=== PATIENT | female | born 1950 | race Caucasian/White ===

== ENCOUNTER 2018-02-08 18:58 | Emergency (ER) | payer OTHER ==
--- OUTSIDE RECORDS SUMMARY | 2018-02-08 19:00 | XMS REPORT | Clinical Summary ---
:1950 Author Organization [facility] Address [address] [place] [address] Care Team Providers Name Role Phone Marcio Ocoha MD Primary Care Provider Allergies Active Allergy Reactions Severity Noted Date Comments Adhesive Tape-Silicones Rash Low 10/31/2017 Codeine GI Intolerance 10/31/2017 Hydrocodone GI Intolerance 02/08/2018 Severe vomiting Nickel Rash Low 10/31/2017 Current Medications Prescription Sig. Disp. Refills Start Date End Date Status acetaminophen Take 500 mg by Active (TYLENOL) 500 MG mouth every 6 tablet (six) hours as needed for mild pain. famotidine (PEPCID Take 1 tablet Active AC ORAL) by mouth as needed. traMADol (ULTRAM) Take 1 tablet 60 tablet 0 02/08/2018 02/22/2018 Active 50 mg tablet (50 mg total) by mouth every 6 (six) hours as needed for moderate pain for up to 60 doses. esomeprazole Take 20 mg by 11/13/2017 Discontinued (NexIUM) 20 MG mouth daily capsule before breakfast. traMADol (ULTRAM) 1-2 tabs PO 60 tablet 3 10/31/2017 11/13/2017 Discontinued 50 mg tablet q4-6 prn pain Active Problems No known active problems Encounters Date Type Specialty Care Team Description 02/08/2018 Hospital Encounter Orthopedic Surgery Jai Wade Lumbar stenosis with neurogenic claudication; MD Collin Acute sciatica; Lumbosacral spinal stenosis 02/08/2018 Anesthesia Event Orthopedic Surgery Damion Muse MD 02/08/2018 Procedure Pass Orthopedic Surgery 02/08/2018 Surgery Orthopedic Surgery Jai Wade DECOMPRESSION AND MD Collin FUSION L4-5 02/06/2018 Orders Only Orthopedic Surgery Marleen Perez MA 01/24/2018 Pre-Admit Testing Pre-Admission Jai Wade Preop examination Appointment Testing MD Collin (Primary Dx) 01/24/2018 Office Visit Orthopedic Surgery Jai Wade Spinal stenosis alexsander Polanco MD lumbar region with neurogenic claudication (Primary Dx) 01/24/2018 Anesthesia Event Pre-Admission 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., 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 01/03/2018 Hospital Encounter Jai Wade MD lumbar region with neurogenic claudication 01/03/2018 Ancillary Orders Orthopedic Surgery Jai Wade Spinal Sandra MD lumbar region with neurogenic claudication 01/03/2018 Ancillary Orders Orthopedic Surgery Jai Wade MD 01/03/2018 Ancillary Orders Orthopedic Surgery Jai Wade Spinal stenosis alexsander Polanco MD lumbar region with neurogenic claudication 12/18/2017 Office Visit Orthopedic Surgery Jai Wade Spinal Sandra MD lumbar region with neurogenic claudication (Primary Dx) 11/13/2017 Office Visit Orthopedic Surgery Jai Wade Bilateral sciatica MD Collin (Primary Dx) 10/31/2017 Office Visit Orthopedic Surgery Wesley Key Primary osteoarthritis of right knee (Primary Dx); MD Torres Acute pain of right knee; Arthralgia of hip, unspecified laterality; Primary osteoarthritis of right hip; History of total right hip replacement 10/31/2017 Orders Only Orthopedic Surgery Ector Perez PA-C 10/31/2017 Orders Only Orthopedic Surgery Ector Perez PA-C after 02/07/2017 Family History Medical History Relation Name Comments Cancer Mother Jacob Hernández Breast Relation Name Status Comments Mother Jacob Hernández Social History Tobacco Use Types Packs/Day Years Used Date Never Smoker Smokeless Tobacco: Never Used Alcohol Use Drinks/Week oz/Week Comments Yes 3 Glasses of wine Sex Assigned at Date Recorded Not on file Last Filed Vital Signs Vital Sign Reading Time Taken Blood Pressure 136/78 02/08/2018 1:45 PM CDT Pulse 78 02/08/2018 1:45 PM CDT Temperature 36.2 C (97.1 F) 02/08/2018 11:37 AM CDT Respiratory Rate 20 02/08/2018 1:45 PM CDT Oxygen Saturation 99% 02/08/2018 1:45 PM CDT Inhaled Oxygen Concentration - - Weight 83.6 kg (184 lb 6 oz) 02/08/2018 7:52 AM CDT Height 157.5 cm (5' 2") 02/08/2018 7:52 AM CDT Body Mass Index 33.72 02/08/2018 7:52 AM CDT Plan of Treatment Date Type Specialty Care Team Description 02/21/2018 Office Visit Orthopedic Surgery Jai Wade MD [address] [address] Health Maintenance Due Date Last Done Comments BREAST CANCER SCREENING 12/01/1999 COLON CANCER SCREENING 12/01/1999 SHINGRIX VACCINE (#1) 12/01/1999 ZOSTER VACCINE 2009 PNEUMOCOCCAL POLYSACCHARIDE VACCINE AGE 65 AND OVER 2014 PNEUMOCOCCAL-13 2014 INFLUENZA VACCINE 02/06/2018 Implants Implanted 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 Device Expiration Model / Identifier Date Serial / Lot Nufix 5.0 Mm Dowel - [id number] Spinal N/A: 09/25/2022 [id number] / Implanted: 02/08/2018 (Quantity not on file) Implants Spine [id number] / Lumbar [id number] Nufix 5.0 Mm Dowel - [id number] Spinal N/A: 07/13/2022 [id number] / Implanted: 02/08/2018 (Quantity not on file) Implants Spine / Lumbar [id number] 3cm X 3cm Sheet, Amniofix Composite Amniotic Tissue Membrane N/A: [id number] 11/06/2022 [id number] / Implanted: 02/08/2018 (Quantity not on file) Spine [id number] / Lumbar [id number] Procedures Procedure Name Priority Date/Time Associated Diagnosis Comments HI AN ELECTIVE Routine 02/08/2018 9:32 AM ENDOTRACHEAL AIRWAY CDT Procedure Note - Slim Pandey PROGRAM MANAGER SLP - 02/08/2018 9:32 AM CDT Airway Date/Time: 02/08/2018 9:11 AM Performed by: SLIM PANDEY Authorized by: DAMION MUSE Location: OR Urgency: Elective Difficult Airway: No Anesthesiologist: DAMION MUSE Resident/PROGRAM MANAGER SLP/AA: SLIM PANDEY Performed by: anesthesiologist Preoxygenated with 100% O2: Yes C-spine Precautions Maintained Throughout: Yes Mask Ventilation: Easy mask Final Airway Type: Endotracheal airway Final Endotracheal Airway: ETT Cuffed: Yes Technique Used: Direct laryngoscopy Devices/Methods Used in Placement: Bougie Insertion Site: Oral Blade Type: Price Laryngoscope Blade/Videolaryngoscope Blade Size: 2 ETT Size (mm): 7.0 Cuff at minimum occlusion pressure: Yes Measured from: Lips ETT to Lips (cm): 22 Placement Verified by: CO2 detection, direct visualization and equal breath sounds Laryngoscopic view: Grade I - full view of glottis Rapid Sequence Induction (RSI): No Modified RSI: No Number of Attempts at Approach: 2 DL x1 by med student; DL x1 by MD; dentition intact OR FL < 1 HOUR Routine 02/08/2018 9:30 Results for this AM CDT procedure are in the results section. ECG PRE/POST OP Routine 01/24/2018 1:12 Preop examination Results for this PM CDT procedure are in the results section. ESTIMATED GFR Routine 01/24/2018 1:03 Results for this PM CDT procedure are in the results section. CBC HEMOGRAM Routine 01/24/2018 1:03 Preop examination Results for this PM CDT procedure are in the results section. BASIC METABOLIC PANEL Routine 01/24/2018 1:03 Preop examination Results for this PM CDT procedure are in the results section. IR EPIDURAL STEROID Routine 01/03/2018 9:08 Spinal stenosis of Results for this INJ TRANSFORAM LUMBAR AM CDT lumbar region with procedure are in RIGHT (NERVE ROOT neurogenic the results BLOCK) claudication section. D-DIMER Routine 10/31/2017 2:33 Results for this PM CDT procedure are in the results section. XR KNEE 4+ VW RIGHT Routine 10/31/2017 1:46 Acute pain of right Results for this PM CDT knee procedure are in the results section. XR PELVIS 1 OR 2 VW Routine 10/31/2017 1:46 Arthralgia of hip, Results for this PM CDT unspecified procedure are in laterality the results section. C-REACTIVE PROTEIN Routine 10/31/2017 12:00 Results for this AM CDT procedure are in the results section. CBC WITH PLATELET AND Routine 10/31/2017 12:00 Results for this DIFFERENTIAL AM CDT procedure are in the results section. D-DIMER Routine 10/31/2017 12:00 Results for this AM CDT procedure are in the results section. SEDIMENTATION RATE Routine 10/31/2017 12:00 Results for this AM CDT procedure are in the results section. after 02/07/2017 Results OR FL < 1 Hour (02/08/2018 9:30 AM) Narrative Performed At IMPRESSION: C-arm fluoroscopy under one hour was provided in the OR for [facility] the referring physician. A radiologist was not present during the procedure. Refer to the Operative report issued by the performing provider for procedure details. [facility] OR 19 ROOM: 8 PROCEDURE: LUMBAR DECOMPRESSION/FUSION START TIME: 914 END TIME: 30 FLUORO TIME: 1 SEC DOSAGE: 1.57 mGy TECH: JACQUI Procedure Note Hm Interface, Radiology Results Incoming - 02/08/2018 12:41 PM CDT IMPRESSION: C-arm fluoroscopy under one hour was provided in the OR for the referring physician. A radiologist was not present during the procedure. Refer to the Operative report issued by the performing provider for procedure details. [facility] OR 19 ROOM: 8 PROCEDURE: LUMBAR DECOMPRESSION/FUSION START TIME: 914 END TIME: 30 FLUORO TIME: 1 SEC DOSAGE: 1.57 mGy TECH: JACQUI Performing Organization Address City/[facility]/Zipcode Phone Number [facility] [address] [place] [address] ECG Pre/Post Op (01/24/2018 1:12 PM) Ventricular rate 75 [facility] Atrial rate 75 [facility] HI interval 144 [facility] QRSD interval 64 [facility] QT interval 382 [facility] MUSE QTC interval 426 [facility] MUSE P axis 1 40 [facility] QRS axis 1 27 [facility] T wave axis 27 [facility] MUSE EKG impression Normal sinus rhythm-Normal ECG-No previous [facility] MUSE ECGs available- Performing Organization Address City/[facility] Phone Number [facility] MUSE [address] [place] [address] Estimated GFR (01/24/2018 1:03 PM) GFR Non Af Amer 83 mL/min/1.73 m2 [facility] DEPARTMENT OF PATHOLOGY AND GENOMIC MEDICINE GFR Af Amer >90 mL/min/1.73 m2 [facility] DEPARTMENT OF Comment: PATHOLOGY AND GENOMIC Chronic kidney disease: <60 mL/min/1.73m2 MEDICINE Kidney failure: <15 mL/min/1.73m2 The estimated GFR is calculated from the IDMS-traceable Modification of Diet in Renal Disease Equation. The accuracy of the calculation is poor when the creatinine is normal. Calculated values >90 mL/min/1.73m2 are not reported. This equation has not been validated in children (<18 years), women, the elderly (>70 years), or ethnic groups other than Caucasians and Americans. Specimen Plasma specimen Performing Organization Address City/[facility]/Zipcode Phone Number [facility] DEPARTMENT OF PATHOLOGY AND [address] [place], [place] [id number] [employer] [facility] CBC hemogram (01/24/2018 1:03 PM) WBC 5.41 4.50 - 11.00 k/uL [facility] DEPARTMENT OF PATHOLOGY AND GENOMIC MEDICINE RBC 4.49 4.20 - 5.50 m/uL [facility] DEPARTMENT OF PATHOLOGY AND GENOMIC MEDICINE HGB 13.8 12.0 - 16.0 g/dL [facility] DEPARTMENT OF PATHOLOGY AND GENOMIC MEDICINE HCT 43.4 37.0 - 47.0 % [facility] DEPARTMENT OF PATHOLOGY AND GENOMIC MEDICINE MCV 96.7 82.0 - 100.0 fL [facility] DEPARTMENT OF PATHOLOGY AND GENOMIC MEDICINE MCH 30.7 27.0 - 34.0 pg [facility] DEPARTMENT OF PATHOLOGY AND GENOMIC MEDICINE MCHC 31.8 31.0 - 37.0 g/dL [facility] DEPARTMENT OF PATHOLOGY AND GENOMIC MEDICINE RDW - SD 47.8 37.0 - 55.0 fL [facility] DEPARTMENT OF PATHOLOGY AND GENOMIC MEDICINE MPV 11.5 8.8 - 13.2 fL [facility] DEPARTMENT OF PATHOLOGY AND GENOMIC MEDICINE Platelet count 226 150 - 400 k/uL [facility] DEPARTMENT OF PATHOLOGY AND GENOMIC MEDICINE Nucleated RBC 0.00 /100 WBC [facility] DEPARTMENT OF PATHOLOGY AND GENOMIC MEDICINE Specimen Blood Performing Organization Address City/[facility]ode Phone Number [facility] DEPARTMENT OF PATHOLOGY AND [address] [place] [address] [employer] MEDICINE Basic metabolic panel (01/24/2018 1:03 PM) Sodium 140 135 - 148 mEq/L [facility] DEPARTMENT OF PATHOLOGY AND GENOMIC MEDICINE Potassium 4.3 3.5 - 5.0 mEq/L [facility] DEPARTMENT OF PATHOLOGY AND GENOMIC MEDICINE Chloride 101 98 - 112 mEq/L [facility] DEPARTMENT OF PATHOLOGY AND GENOMIC MEDICINE CO2 26 24 - 31 mEq/L [facility] DEPARTMENT OF PATHOLOGY AND GENOMIC MEDICINE Anion gap 13@ANIO 7 - 15 mEq/L [facility] DEPARTMENT OF PATHOLOGY AND GENOMIC MEDICINE BUN 9 8 - 23 mg/dL [facility] DEPARTMENT OF PATHOLOGY AND GENOMIC MEDICINE Creatinine 0.7 0.5 - 0.9 mg/dL [facility] DEPARTMENT OF PATHOLOGY AND GENOMIC MEDICINE Glucose 88 65 - 99 mg/dL [facility] DEPARTMENT OF PATHOLOGY AND GENOMIC MEDICINE Calcium 9.4 8.8 - 10.2 mg/dL [facility] DEPARTMENT OF PATHOLOGY AND GENOMIC MEDICINE Specimen Plasma specimen Performing Organization Address City/State/Zipcode Phone Number [facility] DEPARTMENT OF PATHOLOGY AND [address] [place] [address] [facility] IR Epidural Steroid Inj Transforam Lumbar Right (Nerve Root Block) (01/03/2018 9:08 AM) Narrative Performed At EXAMINATION:IR EPIDURAL STEROID INJ TRANSFORAM LUMBAR RIGHT (NERVE HM [facility] ROOT BLOCK) CLINICAL HISTORY:M48.062 Spinal stenosislumbar region with neurogenic claudication, SCS TECHNIQUE: Informed consent was obtained prior to the procedure. All questions were answered. The verbalized understanding. External MRI lumbar spine was reviewed. Appropriate monitoring equipment for moderate sedation was applied. A designated nurse was present throughout the procedure under my direct supervision. Total jxex-gk-sujw sedation time was 10 minutes. Total of Versed 1 mg IV and fentanyl 100 mcg IV was administered. The back was prepped and draped in usual sterile fashion. Under intermittent fluoroscopic guidance and following local anesthetic, a 25-gauge spinal needle was introduced into the right L4-5 foramen. Aspiration was negative for CSF or blood. Infusion of a small amount of Omnipaque 240 contrast demonstrated reflux into the ventral epidural space. No vascular opacification was seen. A mixture of dexamethasone 10 mg and 1 mL bupivacaine 0.25% was infused into the foramen. There are no immediate significant untoward effects. Total fluoroscopy time was 0.6 minutes. 0 radiographs were acquired. The patient was pain-free at baseline and reported no pain at discharge. IMPRESSION: Technically successful fluoroscopic guided right L4-5 transforaminal AMY. [facility]-[id number] Procedure Note Interface, Radiology Results Incoming - 01/03/2018 11:51 AM CDT EXAMINATION: IR EPIDURAL STEROID INJ TRANSFORAM LUMBAR RIGHT (NERVE ROOT BLOCK) CLINICAL HISTORY: M48.062 Spinal stenosis lumbar region with neurogenic claudication, SCS TECHNIQUE: Informed consent was obtained prior to the procedure. All questions were answered. The verbalized understanding. External MRI lumbar spine was reviewed. Appropriate monitoring equipment for moderate sedation was applied. A designated nurse was present throughout the procedure under my direct supervision. Total wgzt-lm-gicx sedation time was 10 minutes. Total of Versed 1 mg IV and fentanyl 100 mcg IV was administered. The back was prepped and draped in usual sterile fashion. Under intermittent fluoroscopic guidance and following local anesthetic, a 25- gauge spinal needle was introduced into the right L4-5 foramen. Aspiration was negative for CSF or blood. Infusion of a small amount of Omnipaque 240 contrast demonstrated reflux into the ventral epidural space. No vascular opacification was seen. A mixture of dexamethasone 10 mg and 1 mL bupivacaine 0.25% was infused into the foramen. There are no immediate significant untoward effects. Total fluoroscopy time was 0.6 minutes. 0 radiographs were acquired. The patient was pain-free at baseline and reported no pain at discharge. IMPRESSION: Technically successful fluoroscopic guided right L4-5 transforaminal AMY. [facility]-[id number] Performing Organization Address City/State/Zipcode Phone Number [facility] [address] [place] [address] D-dimer (10/31/2017 2:33 PM)Only the most recent of2 resultswithin the time period is included. D-dimer 0.78 (H) <0.50 mcg/mL FEU [facility] [place] Comment: The D-Dimer test is used frequently to exclude an acute PE or DVT. In patients with a low to moderate clinical risk assessment and a D-Dimer result <0.50 mcg/mL FEU, the likelihood of a PE or DVT is very low. However, a thromboembolic event should not be excluded solely on the basis of the D-Dimer level. Increased levels of D-Dimer are associated with a PE, DVT, DIC, malignancies, inflammation, sepsis, surgery, trauma, , and advancing patient age. [Davi 2006 11:295(2):199-207] For additional information, please refer to: http://education.sli.do.Boyibang/faq/KWZ178 (This link is being provided for informational/ educational purposes only) Narrative Performed At PT ID [id number] TheySay FASTING: UNKNOWN Resulting Agency Comment Performing Organization Information: Site ID: [id number] Name: [facility] Address: [address] [place] [phone] Director: Oriana Costa Performing Organization Address [facility] Cent[facility]ode Phone Number [facility] [address] [address] XR Knee 4+ Vw Right (10/31/2017 1:46 PM) Narrative Performed At OA with25% loss of joint space, periarticular spurring, cysts, and HM [facility] subchondral sclerosisboth knees medialPlate left femur Performing Organization Address [facility] Cent[facility]ode Phone Number HM [facility] [address] [place] [address] XR Pelvis 1 Or 2 Vw (10/31/2017 1:46 PM) Narrative Performed At Well fixed and aligned THR Right HM [facility] Plate left femur Pedistal right stem tip Performing Organization Address [facility] Phone Number [facility] [address] [place] [address] Sedimentation rate (10/31/2017) Sedimentation rate 11 < OR=30 mm/h [facility] [place] Narrative Performed At FASTING: UNKNOWN [facility] Resulting Agency Comment Performing Organization Information: Site ID: [id number] Name: [facility] Address: [address] [place] [phone] Director: Oriana Costa Performing Organization Address [facility] Centercode Phone Number [facility] [address] [address] CBC with platelet and differential (10/31/2017) WBC 8.9 3.8 - 10.8 Thousand/uL [facility] [place] RBC 4.45 3.80 - 5.10 Million/uL [facility] [place] HGB 13.9 11.7 - 15.5 g/dL [facility] [place] HCT 40.0 35.0 - 45.0 % [facility] [place] MCV 89.9 80.0 - 100.0 fL [facility] [place] MCH 31.2 27.0 - 33.0 pg [facility] [place] MCHC 34.8 32.0 - 36.0 g/dL [facility] [place] RDW 12.7 11.0 - 15.0 % [facility] Platelet count 234 140 - 400 Thousand/uL [facility] [place] MPV 11.2 7.5 - 12.5 fL [facility] [place] Neutrophils, absolute 7,236 1,500 - 7,800 cells/uL [facility] [place] Lymphocytes, absolute 908 850 - 3,900 cells/uL [facility] [place] Monocytes, absolute 712 200 - 950 cells/uL [facility] [place] Eosinophils, absolute 9 (L) 15 - 500 cells/uL [facility] [place] Basophils, absolute 36 0 - 200 cells/uL [facility] [place] Neutrophils 81.3 % [facility] [place] Lymphocytes 10.2 % [facility] [place] Monocytes 8.0 % [facility] [place] Eosinophils 0.1 % [facility] [place] Basophils + RC 0.4 % [facility] [place] Narrative Performed At FASTING: UNKNOWN [facility] Resulting Agency Comment Performing Organization Information: Site ID: [id number] Name: [facility] Address: [address] [place] [phone] Director: Oriana Costa Performing Organization Address City/[facility] Centercode Phone Number [facility] [address] [place] [address] C-reactive protein (10/31/2017) CRP 21.1 (H) <8.0 mg/L [facility] [place] Narrative Performed At FASTING: UNKNOWN [facility] Resulting Agency Comment Performing Organization Information: Site ID: [id number] Name: [facility] Address: [address] [place] [id number] Director: Oriana Costa Performing Organization Address City/State/Zipcode Phone Number [place] [facility] [place] [address] [place] [address] after 02/07/2017 Insurance Payer Benefit Plan / Group Subscriber ID Type Phone Address AETNA MEDICARE AETNA MEDICARE HMO/PPO [facility] xxxxxxxx HMO Home: Ritu ONOFRE [phone] [place] [id number]
[2018-02-08] MEDS ORDERED: PROMETHAZINE 25 MG/ML VIAL ONE (20:05)
[2018-02-08] MEDS ORDERED: NA CHLORIDE 0.9% 500 ML ONE (20:05)
--- NOTE | 2018-02-08 21:14 | RAD REPORT ---
EXAM DESCRIPTION: CT - Head Brain Wo Cont - 02/08/2018 8:51 pm CLINICAL HISTORY: Vomiting, headache COMPARISON: None. TECHNIQUE: Axial 5 mm thick images of the head were obtained without IV contrast. All CT scans are performed using dose optimization technique as appropriate and may include automated exposure control or mA/KV adjustment according to patient size. FINDINGS: No intracranial hemorrhage, mass, edema or shift of mid-line structures. No acute infarcti on changes seen. No abnormal extra-axial fluid collections. Mild atrophy and chronic ischemic changes are present. Ventricular size is in proportion. Mastoid air cells and visualized portions of the paranasal sinuses are clear. No acute bony findings. IMPRESSION: Negative non-contrast CT head examination for acute finding. Mild atrophy and chronic ischemic changes are present. Ventricular size is in proportion.
[2018-02-08] MEDS ORDERED: IBUPROFEN 400 MG TAB ONE (21:30)
[2018-02-08] MEDS ORDERED: ACETAMINOPHEN 325 MG TABLET ONE (21:33)
[2018-02-08] MEDS ORDERED: ONDANSETRON 4 MG/2 ML VIAL ONE (21:41)
--- NOTE | 2018-02-08 23:04 | ER ---
Nurse's Notes [facility] Name: Gretel Adan Age: 67 yrs Sex: Female : 1950 Arrival Date: 02/08/2018 Time: 19:04 Bed 2 Private MD: Marcio Ochoa V Diagnosis: Nausea and vomiting Presentation: 02/08 19:25 Presenting complaint: Patient states: "I had back surgery today and now I am having jd3 really bad nausea and can't hold anything down.". Transition of care: patient was not received from another setting of care. Onset of symptoms was February 08, 2018. Risk Assessment: Do you want to hurt yourself or someone else? Patient reports no desire to harm self or others. Initial Sepsis Screen: Does the patient meet any 2 criteria? No. Patient's initial sepsis screen is negative. Does the patient have a suspected source of infection? No. Patient's initial sepsis screen is negative. Care prior to arrival: None. 19:25 Method Of Arrival: Wheelchair jd3 19:25 Acuity: AMY 3 jd3 Historical: - Allergies: 19:28 Codeine; jd3 19:28 Adhesives; jd3 - Home Meds: 19:28 None [Active]; jd3 - PMHx: 19:28 None; jd3 - PSHx: 19:28 ; Hysterectomy; back sx; hip sx; right arm sx; left leg sx; jd3 - Immunization history:: Adult Immunizations up to date. - Social history:: Smoking status: Patient/guardian denies using tobacco. - Ebola Screening: : Patient negative for fever greater than or equal to 101.5 degrees Fahrenheit, and additional compatible Ebola Virus Disease symptoms. - Family history:: not pertinent. - Hospitalizations: : No recent hospitalization is reported. Screenin:31 Abuse screen: Denies threats or abuse. Nutritional screening: No deficits noted. jd3 Tuberculosis screening: No symptoms or risk factors identified. Fall Risk Ambulatory Aid- None/Bed Rest/Nurse Assist (0 pts). Gait- Normal/Bed Rest/Wheelchair (0 pts) Mental Status- Oriented to own ability (0 pts). Total Bae Fall Scale indicates No Risk (0-24 pts). Assessment: 19:30 General: Appears in no apparent distress. uncomfortable, Behavior is calm, cooperative, jd3 appropriate for age. Pain: Complains of pain in back Quality of pain is described as aching. Neuro: Level of Consciousness is awake, alert, obeys commands, Oriented to person, place, time, situation, Appropriate for age Reports dizziness. Cardiovascular: Capillary refill < 3 seconds Patient's skin is warm and dry. Respiratory: Airway is patent Respiratory effort is even, unlabored, Respiratory pattern is regular, symmetrical, Breath sounds are clear bilaterally. GI: Abdomen is round Bowel sounds present X 4 quads. Abd is soft and non tender X 4 quads. Reports nausea, Patient currently denies diarrhea. : No signs and/or symptoms were reported regarding the genitourinary system. EENT: No signs and/or symptoms were reported regarding the EENT system. Derm: Skin is intact, Skin is dry, Skin is normal, Skin temperature is warm. Musculoskeletal: Circulation, motion, and sensation intact. Range of motion: intact in all extremities. 20:25 Reassessment: Patient appears in no apparent distress at this time. Patient and/or jd3 family updated on plan of care and expected duration. Pain level reassessed. Patient is alert, oriented x 3, equal unlabored respirations, skin warm/dry/pink. 21:21 Reassessment: Patient appears in no apparent distress at this time. Patient and/or jd3 family updated on plan of care and expected duration. Pain level reassessed. Patient is alert, oriented x 3, equal unlabored respirations, skin warm/dry/pink. 22:37 Reassessment: Patient appears in no apparent distress at this time. No changes from jd3 previously documented assessment. Patient and/or family updated on plan of care and expected duration. Pain level reassessed. Patient is alert, oriented x 3, equal unlabored respirations, skin warm/dry/pink. 23:19 Reassessment: Patient appears in no apparent distress at this time. Patient and/or jd3 family updated on plan of care and expected duration. Pain level reassessed. Patient is alert, oriented x 3, equal unlabored respirations, skin warm/dry/pink. pt reported understanding of discharge instructions. Vital Signs: 19:29 BP 149 / 89; Pulse 83; Resp 17 S; Temp 98.3(O); Pulse Ox 98% on R/A; Weight 83.01 kg jd3 (R); Height 5 ft. 2 in. (157.48 cm) (R); 20:24 BP 133 / 51; Pulse 93; Resp 14 S; Pulse Ox 95% on R/A; jd3 21:20 BP 154 / 100; Pulse 90; Resp 14 S; Pulse Ox 97% on R/A; jd3 22:36 BP 165 / 88; Pulse 97; Resp 20 S; Pulse Ox 96% on R/A; jd3 19:29 Body Mass Index 33.47 (83.01 kg, 157.48 cm) jd3 ED Course: 19:04 Patient arrived in ED. mr 19:04 Marcio Ochoa MD is Private Physician. mr 19:10 Javier Young MD is Attending Physician. rn 19:17 Nicolas Stafford RN is Primary Nurse. jd3 19:26 Triage completed. jd3 19:30 Arm band placed on. jd3 19:33 Patient has correct armband on for positive identification. Bed in low position. Call jd3 light in reach. Side rails up X 1. Adult w/ patient. 19:53 Missed attempt(s): 22 gauge in right antecubital area. Bleeding controlled, band aid jd3 applied, catheter tip intact. 20:04 Inserted saline lock: 22 gauge in left antecubital area, using aseptic technique. bb 20:[address] nj 20:51 CT Head Brain wo Cont In Process Unspecified. EDMS 23:03 Marcio Ochoa MD is Referral Physician. rn 23:18 No provider procedures requiring assistance completed. IV discontinued, intact, jd3 bleeding controlled, No redness/swelling at site. Pressure dressing applied. Administered Medications: 20:09 Drug: Phenergan 12.5 mg Route: IVP; Site: left antecubital; jd3 21:00 Follow up: Response: No adverse reaction jd3 20:09 Drug: NS 0.9% 500 ml Route: IV; Rate: bolus; Site: left antecubital; jd3 21:00 Follow up: Response: No adverse reaction; IV Status: Completed infusion; IV Intake: jd3 500ml 21:30 CANCELLED (Physician Discretion): Motrin 800 mg PO once jd3 21:31 Drug: Tylenol 650 mg Route: PO; jd3 22:00 Follow up: Response: No adverse reaction jd3 21:46 Drug: Zofran 4 mg Route: IVP; Site: left antecubital; jd3 22:30 Follow up: Response: No adverse reaction jd3 Intake: 21:00 IV: 500ml; Total: 500ml. jd3 Outcome: 23:03 Discharge ordered by . rn 23:18 Discharged to home via wheelchair, with family. jd3 23:18 Condition: stable 23:18 Discharge instructions given to patient, family, Instructed on discharge instructions, follow up and referral plans. Demonstrated understanding of instructions, follow-up care. 23:19 Patient left the ED. jd3 Signatures: Dispatcher [employer] EDAshley Swain Brenda, RN RN bb Nieto, Roman, MD MD rn Jordan, Nathan nj Davies, Jonathon, RN RN jd3
--- NOTE | 2018-02-08 23:04 | EDPHYS ---
Physician Documentation [facility] Name: Gretel Adan Age: 67 yrs Sex: Female : 1950 Arrival Date: 02/08/2018 Time: 19:04 Bed 2 Private MD: Marcio Ochoa V ED Physician Javier Young HPI: 02/08 20:02 This 67 yrs old Female presents to ER via Wheelchair with complaints of rn Vomiting. 20:02 The patient presents to the emergency department with nausea, vomiting. Onset: The rn symptoms/episode began/occurred today. Possible causes: anesthesia, medication reaction. The symptoms are aggravated by nothing. The symptoms are alleviated by nothing. Severity of symptoms: At their worst the symptoms were moderate in the emergency department the symptoms are unchanged. The patient has experienced a previous episode. The patient has been recently seen by a physician:. Reports had spinal fusion this AM, under general anesthesia, is allergic (vomits) to codeine, told them, she got fentanyl, threw up shortly after waking up from surgery, given oral zofran, didn't help, sent home, continued to throw up, her physician prescribed oral zofran, didn't get it filled, came here instead for IV. . Historical: - Allergies: 19:28 Codeine; jd3 19:28 Adhesives; jd3 - Home Meds: 19:28 None [Active]; jd3 - PMHx: 19:28 None; jd3 - PSHx: 19:28 ; Hysterectomy; back sx; hip sx; right arm sx; left leg sx; jd3 - Immunization history:: Adult Immunizations up to date. - Social history:: Smoking status: Patient/guardian denies using tobacco. - Ebola Screening: : Patient negative for fever greater than or equal to 101.5 degrees Fahrenheit, and additional compatible Ebola Virus Disease symptoms. - Family history:: not pertinent. - Hospitalizations: : No recent hospitalization is reported. ROS: 20:02 Constitutional: Negative for fever, chills, and weight loss, Eyes: Negative for injury, rn pain, redness, and discharge, Neck: Negative for injury, pain, and swelling, Cardiovascular: Negative for chest pain, palpitations, and edema, Respiratory: Negative for shortness of breath, cough, wheezing, and pleuritic chest pain, Abdomen/GI: Negative for abdominal pain, diarrhea, and constipation, MS/Extremity: Negative for injury and deformity, Skin: Negative for injury, rash, and discoloration, Neuro: Negative for headache, numbness, tingling, and seizure. Exam: 20:02 Constitutional: This is a well developed, well nourished patient who is awake, alert, rn and in no acute distress. Head/Face: Normocephalic, atraumatic. Eyes: Pupils equal round and reactive to light, extra-ocular motions intact. Lids and lashes normal. Conjunctiva and sclera are non-icteric and not injected. Cornea within normal limits. Periorbital areas with no swelling, redness, or edema. ENT: MMM Abdomen/GI: Soft, non-tender. No distension or tympany. No guarding or rebound. No evidence of tenderness throughout. Skin: Warm, dry with normal turgor. Normal color with no rashes, no lesions, and no evidence of cellulitis. MS/ Extremity: Pulses equal, no cyanosis. Neurovascular intact. Neuro: Awake and alert, GCS 15, oriented to person, place, time, and situation. Cranial nerves II-XII grossly intact. Motor strength 5/5 in all extremities. Sensory grossly intact. Vital Signs: 19:29 BP 149 / 89; Pulse 83; Resp 17 S; Temp 98.3(O); Pulse Ox 98% on R/A; Weight 83.01 kg jd3 (R); Height 5 ft. 2 in. (157.48 cm) (R); 20:24 BP 133 / 51; Pulse 93; Resp 14 S; Pulse Ox 95% on R/A; jd3 21:20 BP 154 / 100; Pulse 90; Resp 14 S; Pulse Ox 97% on R/A; jd3 22:36 BP 165 / 88; Pulse 97; Resp 20 S; Pulse Ox 96% on R/A; jd3 19:29 Body Mass Index 33.47 (83.01 kg, 157.48 cm) jd3 MDM: 19:10 Patient medically screened. rn 23:01 Differential diagnosis: gastroenteritis, medication adverse reaction, reaction to rn anesthesia. Data reviewed: vital signs, nurses notes, EKG, radiologic studies, CT scan, and as a result, I will discharge patient. Counseling: I had a detailed discussion with the patient and/or guardian regarding: the historical points, exam findings, and any diagnostic results supporting the discharge/admit diagnosis, radiology results, the need for outpatient follow up, to return to the emergency department if symptoms worsen or persist or if there are any questions or concerns that arise at home. Response to treatment: the patient's symptoms have markedly improved after treatment, and as a result, I will discharge patient. Special discussion: I discussed with the patient/guardian in detail that at this point there is no indication for admission to the hospital. It is understood, however, that if the symptoms persist or worsen the patient needs to return immediately for re-evaluation. ED course: Pt improved, ct head normal, no ischemia on ECG, no abd tenderness, will dc home to sleep it off and allow medication to clear her system, will not try and eat until waking up, if new symptoms surface or change/worsen, urged to return or seek reevaluation by physician. . 23:04 ED course: family left and filled the phenergan that her physician called in.. rn 02/08 20:30 Order name: CT Head Brain wo Cont; Complete Time: 21:15 rn 02/08 19:22 Order name: IV Start; Complete Time: 20:08 rn 02/08 19:24 Order name: EKG; Complete Time: 19:24 rn 02/08 19:24 Order name: EKG - Nurse/Tech; Complete Time: 19:33 rn Administered Medications: 20:09 Drug: Phenergan 12.5 mg Route: IVP; Site: left antecubital; jd3 21:00 Follow up: Response: No adverse reaction jd3 20:09 Drug: NS 0.9% 500 ml Route: IV; Rate: bolus; Site: left antecubital; jd3 21:00 Follow up: Response: No adverse reaction; IV Status: Completed infusion; IV Intake: jd3 500ml 21:30 CANCELLED (Physician Discretion): Motrin 800 mg PO once jd3 21:31 Drug: Tylenol 650 mg Route: PO; jd3 22:00 Follow up: Response: No adverse reaction jd3 21:46 Drug: Zofran 4 mg Route: IVP; Site: left antecubital; jd3 22:30 Follow up: Response: No adverse reaction jd3 Disposition: 08/03/18 23:03 Discharged to Home. Impression: Nausea and vomiting. - Condition is Stable. - Discharge Instructions: Nausea and Vomiting, Adult. - Medication Reconciliation Form, Thank You Letter, Antibiotic Education, Prescription Opioid Use form. - Follow up: Marcio Ochoa MD; When: As needed; Reason: Recheck today's complaints, Re-evaluation by your physician. - Problem is new. - Symptoms have improved. Signatures: Dispatcher [employer] EDMS Javier Young MD MD rn Davies, Jonathon, RN RN jd3 Corrections: (The following items were deleted from the chart) 21:30 21:24 Motrin 800 mg PO once ordered. rn jd3 23:19 23:03 02/08/2018 23:03 Discharged to Home. Impression: Nausea and vomiting. Condition jd3 is Stable. Forms are Medication Reconciliation Form, Thank You Letter, Antibiotic Education, Prescription Opioid Use. Follow up: Marcio Ochoa; When: As needed; Reason: Recheck today's complaints, Re-evaluation by your physician. Problem is new. Symptoms have improved. rn
[2018-02-08 23:26] VITALS: TEMP 98.3
[2018-02-08 23:29] VITALS: BP 165/88; O2SAT 96
--- NOTE | 2018-02-09 07:28 | EKG ---
Test Date: 2018-02-08 Test Time: 19:32:39 Knowledge Management Consultant: FRANCISCA MEASUREMENT RESULTS: Intervals: Rate: 82 W[place]: 152 QRSD: 68 QT: 344 QTc: 401 [place]: P: 59 W[place]: 152 QRS: 36 T: 33 INTERPRETIVE STATEMENTS: Normal sinus rhythm Nonspecific T wave abnormality Abnormal ECG No previous ECG available for comparison Electronically Signed On 02-09-18 07:27:51 CDT by Dalton George
== END 2018-02-08 23:19 | disposition home or self-care (01) ==
LOC: ER 18:58
DX: R11.2 Nausea with vomiting, unspecified (principal); Z98.890 Other specified postprocedural states; Z88.5 Allergy status to narcotic agent; Z91.048 Other nonmedicinal substance allergy status
CPT/HCPCS: 70450; 93005; 96361; 96374; 96375; 99284; J2405; J2550